=== PATIENT | female | born 1995 | race Caucasian/White ===

== ENCOUNTER 2024-07-03 05:05 | Inpatient (IN) | payer BC, SELFPAY ==
[2024-07-03] VITALS (100 sets, daily range): BP systolic 92–152; BP diastolic 39–95; PULSE 73–233; RESP 18; TEMP 36.6–37.2; O2SAT 97–100; BMI 34.4
--- NOTE | 2024-07-03 05:33 | LDADM ---
This patient, Brook Mcginnis, was admitted to Labor/Delivery/Recovery 103 on 07/03/24 at 05:05. Plans for labor, pain management and were discussed with patient. Patient/family oriented to hospital policies and general routines including ID bracelet, bed and alarms, visiting hours, pain management, procedures, bathroom and other care routines, personal items, smoking policy, room service/diet and guest tray routines, security routines, and visiting hours. Patient/Family are encouraged to report perceived risks to care and to ask questions if they do not understand what they are told or what they should do. See OBIX for further documentation.
--- NOTE | 2024-07-03 05:44 | P.HP_ITS ---
H&P: HPI History of Present Illness Date/Time: 07/03/24 05:44 Chief Complaint: induction labor Labor at term Narrative: 29-year-old 2 para 0 whose last menstrual period was 09/17/2023, EDC is 06/29/2024, confirmed by 7 week ultrasound presents at 40 and half weeks gestation for induction of labor. She is positive for group B strep. Her has been otherwise uncomplicated [facility] Family History Family History Mother Hypertension Grandparent Hypertension Breast cancer Grandparent Breast cancer Father Diabetes mellitus Grandparent Diabetes mellitus Social History Social History Smoking status: Never smoker Substance use: never Do You Feel Safe in your Home?: Yes Lack of Transportation: YES Lack of Food: Never True Current Housing: I Have Housing Concerned About Future Housing: No Difficulty Paying Gas/Electric Bills: No Difficulty Paying for Meds: No Currently Unemployed: No Education: Bachelor's Degree Difficulty w/ Childcare or Family Care: No Spiritual care concerns: No Meds Home Medications and Allergies Home Medications Medication Instructions Recorded Confirmed Type prenat.vits,zoe,yrw-eivf-jlwea 1 tablet 06/03/24 History Allergies Allergy/AdvReac Type Severity Reaction Status Date / Time No Known Allergies Allergy Verified 06/03/24 15:31 Vital Signs Vital Signs - 24 hr 07/03/24 05:23 07/03/24 05:30 Pulse Rate 101 H Blood Pressure 138/89 Oxygen Delivery Room Air Exam Const: General: cooperative, healthy appearing and comfortable Nutritional Appearance: average body habitus Orientation/consciousness: oriented to person, oriented to place and oriented to time Resp: Effort & Inspection: normal respiratory effort Cardio: Rate: regular rate Rhythm: regular rhythm Heart sounds: S1 normal heart sound present and S2 normal heart sound present GI: Inspection: normal to inspection ( gravid soft uterus) : External Female Exam: normal external appearance Speculum Exam - Va sanjuanita: normal appearance of the vagina Speculum Exam - Cervix: normal appearance of the cervix ( cervix 4/75/2. AROM clear. FHT is reassuring) Assessment and Plan Assessment and plan (1) Term : Code(s): Z34.90 - Encounter for supervision of normal , unspecified, unspecified trimester Status: Acute (2) Positive testing for group B Streptococcus: Code(s): B95.1 - Streptococcus, group B, as the cause of diseases classified elsewhere Status: Acute Assessment and Plan: medical induction labor. Group B strep prophylaxis. Spontaneous vaginal delivery is expected. She is an epidural candidate
[2024-07-03] MEDS: AMPICILLIN 2 GM/NS 100 ML 2 GM/100 ML BAG IVPB (05:45)
[2024-07-03] MEDS: OXYTOCIN 30 UNITS/NS 500 ML 30 UNITS/500 ML BAG IV CONT ×2 (05:45→14:35)
[2024-07-03] MEDS: LACTATED RINGERS 1,000 ML 125 ML IV CONT ×2 (05:45→07:51)
[2024-07-03 05:52] LABS: Basophils Percent Auto 0.5 % (0.2-1.2); Eosinophils Absolute Auto 0.1 K/mm3 (0-0.3); Eosinophils Percent Auto 1.6 % (0-4.4); Hematocrit 36.6 % (37.0-47.0); Hemoglobin 12.3 g/dL (12.0-15.0); Immature Granulocyte Absolute 0.07 K/mm3 (0.00-0.031); Immature Granulocyte Percent A 0.8 % (0-0.5); Lymphocytes Absolute Auto 1.67 K/mm3 (0.9-3.2); Lymphocytes Percent Auto 18.8 % (18.3-44.2); Mean Corpuscular HGB Conc 33.6 g/dl (32-36); Mean Corpuscular Hemoglobin 31.5 pg (26-34); Mean Corpuscular Volume 93.6 fl (80-100); Mean Platelet Volume 11.7 fl (7.4-10.4); Monocytes Absolute Auto 0.6 K/mm3 (0.1-0.6); Neutrophils Absolute Auto 6.3 K/mm3 (1.3-6.7); Neutrophils Percent Auto 71.3 % (45.5-73.1); Platelet Count Result 155 k/mm3 (150-375); Red Blood Count 3.91 M/mm3 (4.2-5.4); White Blood Count 8.9 K/mm3 (4.5-10.0)
--- NOTE | 2024-07-03 06:23 | WPDANESEPP ---
Anes - Eval Pre Procedure Procedure: labor epidural Date/Time: 07/03/24 06:23 Surgeon: baljinder Preop Diagnosis: pain during labor Pre Op Diagnosis: IOL Patient Data Age: 29 Gender: F Height: Weight: Last Vital Signs Pulse 81 07/03/24 06:01 BP 128/71 07/03/24 06:01 O2 Del Method Room Air 07/03/24 05:30 Allergies Allergy/AdvReac Type Severity Reaction Status Date / Time No Known Allergies Allergy Verified 06/03/24 15:31 Home Medications Medication Instructions Recorded Confirmed Type prenat.vits,zoe,emh-bkxz-utgpe 1 tablet 06/03/24 History Laboratory Tests 07/03/24 07/03/24 05:33 05:34 WBC 8.9 K/mm3 (4.5-10.0) RBC 3.91 L M/mm3 (4.2-5.4) Hgb 12.3 g/dL (12.0-15.0) Hct 36.6 L % (37.0-47.0) MCV 93.6 fl (80-100) MCH 31.5 pg (26-34) MCHC 33.6 g/dl (32-36) RDW 13.0 % (11.5-14.5) Plt Count 155 k/mm3 (150-375) MPV 11.7 H fl (7.4-10.4) Immature Gran % (Auto) 0.8 H % (0-0.5) Neut % (Auto) 71.3 % (45.5-73.1) Lymph % (Auto) 18.8 % (18.3-44.2) [place] % (Auto) 7.0 % (2.6-8.5) Eos % (Auto) 1.6 % (0-4.4) Baso % (Auto) 0.5 % (0.2-1.2) Lymph # (Auto) 1.67 K/mm3 (0.9-3.2) [place] # (Auto) 0.6 K/mm3 (0.1-0.6) Eos # (Auto) 0.1 K/mm3 (0-0.3) Baso # (Auto) 0.0 K/mm3 (0.0-0.1) Abs Immat Gran (auto) 0.07 H K/mm3 (0.00-0.031) Absolute Neuts (auto) 6.3 K/mm3 (1.3-6.7) Absolute Nucleated RBC 0.000 K/mm3 (0.0-0.012) Nucleated RBC % 0.0 % (0.0-0.2) RPR Pending HIV 1&2 Ab/P24 Ag 4thGn Pending Blood Type AB Positive Antibody Screen Pending Patient hx anesthesia problems: none Family hx anesthesia problems: none Results Review: All pre-operative results and documents have been reviewed as part of the pre-operative evaluation. [facility] Family History Family History Mother Hypertension Grandparent Hypertension Breast cancer Grandparent Breast cancer Father Diabetes mellitus Grandparent Diabetes mellitus Social History Social History Smoking status: Never smoker Substance use: never Do You Feel Safe in your Home?: Yes Lack of Transportation: YES Lack of Food: Never True Current Housing: I Have Housing Concerned About Future Housing: No Difficulty Paying Gas/Electric Bills: No Difficulty Paying for Meds: No Currently Unemployed: No Education: Bachelor's Degree Difficulty w/ Childcare or Family Care: No Spiritual care concerns: No Exam Day of Procedure 07/03/24 06:23
[2024-07-03 06:36] LABS: HIV 1/2 Ab P24 Ag Result Negative (Negative)
[2024-07-03 07:45] LABS: Rapid Plasma Reagin Non-Reactive (NonReactive)
[2024-07-03] MEDS: fentaNYL CITRATE INJ (*CRX) 100 MCG/2 ML VIAL 50 MCG IV PUSH ×2 (07:50→09:00)
[2024-07-03] MEDS: AMPICILLIN 1 GM/NS 50 ML 1 GM/50 ML BAG IVPB (10:12)
--- NOTE | 2024-07-03 12:03 | PM.OBPNLAB ---
Pain Control Date/time seen: 07/03/24 12:03 Pain control: tolerating well and epidural Pelvic Exam Dilation (cm): 10 Effacement (%): 100 station: 0 Amniotic membrane status: Leaking
--- NOTE | 2024-07-03 14:17 | P.PCNOB_ITS ---
OB - Vaginal Delivery Note Procedure Delivery date: 07/03/24 Induction method: AROM Delivery augmentation: Pitocin Delivery monitor: External FHT and External Uterine Route of delivery: Episiotomy description: None Laceration Description: Perineal - 1st Degree Delivery repair: vicryl Specimen: No Quantitative Blood Loss (ml): 161 Anesthesia type: Epidural Disposition: Floor Complications: No immediate complications Narrative: She was admitted for induction of labor with group B strep at 40 and half weeks gestation artificial rupture membranes performed she received 2 doses of ampicillin. When she was complete she pushed delivered the head spontaneously in the SERENE position. Nuchal cord checked noted be loose x1 read room occiput anterior posterior shoulder delivered spontaneously. Cord to the placed in warmer given Apgars of 8 at 8 [id number]. Cord blood was drawn placenta delivered intact spontaneously. 20units Pitocin placed IV to help firm after speculum sidewalls 1st be sulcal tear was noted and a [id number] suture was placed with 0 blood loss was 161cc all sponge, needle, instrument counts were correct. No complications [place] Baby Date of : 07/03/24 Time of : 14:03 Gestational Age by Date: 40 gender: Male Weight (pounds): 9 Weight (ounces): 10 presentation: vertex position: Right Occiput Anterior Placenta delivery description: Spontaneous Cord Vessel Description: 3 Vessels, Nuchal Cord, Loose and Reduced score one minute: 8 score five minutes: 8 Narrative: ampicillin x2 for group B strep
--- NOTE | 2024-07-03 14:20 | PM.DS ---
DS: Admitting Diagnosis Discharge Date 07/05/2024 Admitting Diagnosis term /positive group B strep DS: Discharge Diagnosis Discharge Diagnosis (1) Positive testing for group B Streptococcus: Code(s): B95.1 - Streptococcus, group B, as the cause of diseases classified elsewhere Status: Acute (2) Term : Code(s): Z34.90 - Encounter for supervision of normal , unspecified, unspecified trimester Status: Acute DS: Summary Hospital Course Reason for hospitalization: patient was admitted for induction labor at 40 and half weeks gestation on 07/03/2024 and underwent spontaneous vaginal delivery with 2 doses of ampicillin prophylactically for group B strep Hospital Course: patient's hospital course will recall. She remained afebrile she was up, voiding without difficulty, eating regular diet, ambulating, and generally 5 complaints. Time Spent with Patient Time attestation: Total time spent providing and/or coordinating discharge services: Exam Const: General: cooperative, healthy appearing and comfortable Nutritional Appearance: average body habitus Orientation/consciousness: oriented to person, oriented to place and oriented to time HENMT: Head: normal to inspection Resp: Effort & Inspection: normal respiratory effort Cardio: Rate: regular rate Rhythm: regular rhythm Heart sounds: S1 normal heart sound present and S2 normal heart sound present GI: Inspection: normal to inspection DS: Data Data Completed and Pending Labs on day of discharge: Labs from last 24 hours 07/03/24 07/03/24 05:34 05:33 WBC 8.9 RBC 3.91 L Hgb 12.3 Hct 36.6 L MCV 93.6 MCH 31.5 MCHC 33.6 RDW 13.0 Plt Count 155 MPV 11.7 H Immature Gran % (Auto) 0.8 H Neut % (Auto) 71.3 Lymph % (Auto) 18.8 [place] % (Auto) 7.0 Eos % (Auto) 1.6 Baso % (Auto) 0.5 Lymph # (Auto) 1.67 [place] # (Auto) 0.6 Eos # (Auto) 0.1 Baso # (Auto) 0.0 Abs Immat Gran (auto) 0.07 H Absolute Neuts (auto) 6.3 Absolute Nucleated RBC 0.000 Nucleated RBC % 0.0 RPR Non-reactive HIV 1&2 Ab/P24 Ag 4thGn Negative Blood Type AB Positive Antibody Screen Negative Discharge Plan Discharge Attending physician on discharge: Petar Quintanilla Discharging Clinician: Petar Quintanilla Patient Disposition: Home, Self-Care Activity: may shower and pelvic rest Diet: heart healthy Wound Care Instructions: follow printed instructions Patient Instructions: Antibiotic Form Stand Alone Forms: General Discharge Information Follow-up/Referrals: Petar Quintanilla MD [Physician] - Discharge Medications: Continued #2 Tablet 1 tablet PO DAILY Date of admission: 07/03/24 05:05 Primary Care Provider: UNKNOWN,DOCTOR Admitting Provider: Petar Quintanilla Attending physician on admission: Petar Quintanilla Condition: Stable
[2024-07-03] MEDS: METHYLERGONOVINE MALEATE 0.2 MG/ML VIAL IM (16:10)
[2024-07-03] MEDS: BENZOCAINE 20% AER SPR (*SP) 56 GM CAN 1 SPRAY TOPICAL (16:40)
[2024-07-03] MEDS: IBUPROFEN 600 MG TABLET PO ×2 (16:40→23:30)
[2024-07-03] MEDS: WITCH HAZEL 40 PADS 1 PAD TOPICAL (16:40)
--- NOTE | 2024-07-03 18:41 | OBPPTRN ---
Patient transferred to post room #287 via w/c. Support person present. Oriented to unit, room, information board, rooming in, admission packet and security measures. Patient verbalizes understanding.
[2024-07-03] MEDS: ACETAMINOPHEN 325 MG TABLET 650 MG PO (21:00)
[2024-07-04] MEDS: ACETAMINOPHEN 325 MG TABLET 650 MG PO ×3 (04:00→23:58)
[2024-07-04 05:57] LABS: Hematocrit 30.4 % (37.0-47.0); Hemoglobin 10.2 g/dL (12.0-15.0)
[2024-07-04] MEDS: MULTIVIT/MIN/PREN/FOL AC/IRON TABLET 1 TAB PO (07:19)
[2024-07-04] MEDS: IBUPROFEN 600 MG TABLET PO ×3 (07:19→20:34)
--- NOTE | 2024-07-04 08:25 | PC.NURSE ---
Introductions made, name written board. RN consulted with patient to assess needs related to . Discussed with mother her successes, concerns and any questions she has. We reviewed working with the infant, supporting breast, protecting her nipples with an optimal deep latch, good positioning, and good hand washing. Encouraged understanding the benefits of skin to skin, responding to feeding cues, frequencies of feeding 8-12 times in 24 hours (approximately 2-3 hours), duration of feedings, milk production, intake/output feeding sheet and signs of adequate intake encouraging swallowing at the breast. Reviewed positioning and alignment, supporting breast, off-centered (asymmetrical latch) and leading with the chin with big, open, wide gape. latched optimally to the left breast in football position. Education given to the mother of how to visualize the suckling (with good rocking jaw motion) swallows (dropping of the lower jaw) and how to listen for drinking at the breast (the ka sound). The infant was able to maintain latch without discomfort to mother. Nipple care reviewed with optimal latch, good positioning and using clean hands when touching her breast. Resources used to facilitate learning were used from the visual handouts and the mom and baby guide. Mother voiced understanding of the education shared, to call for assistance if the does not latch or if there is discomfort with . Reported to the Primary RN.
[2024-07-04 08:30] VITALS: BP 112/68; PULSE 72; RESP 16; TEMP 36.4; O2SAT 100
[2024-07-04] MEDS: DOCUSATE SODIUM 100 MG CAPSULE PO ×2 (09:38→13:48)
[2024-07-04 12:20] VITALS: BP 108/68; PULSE 84; RESP 16; TEMP 36.6; O2SAT 98
--- NOTE | 2024-07-04 14:00 | WPDANLDPN2 ---
Anes-Prog Note L&D Date/Time: 07/04/24 14:00 Comfortable throughout: labor and delivery Neuraxial method: epidural Epidural/Spinal procedure site: clean & non-tender Neuro status: Neuro function grossly intact. Cardiovascular status: normal Respiratory status: normal Airway patency: baseline Mental status: baseline Post-Op hydration status: normal Vital Signs: Last Vital Signs Temp 36.6 C 07/04/24 12:20 Pulse 84 07/04/24 12:20 Resp 16 07/04/24 12:20 BP 108/68 07/04/24 12:20 Pulse Ox 98 07/04/24 12:20 O2 Del Method Room Air 07/03/24 19:00 Pain score (VAS): 3/10 I/O: Intake & Output 07/03/24 07/04/24 07/04/24 23:59 07:59 15:59 Output Total 262 Balance -262 Post-procedural complaints: none Patient feedback: Patient satisfied with anesthetic care.
--- NOTE | 2024-07-04 17:00 | PC.NURSE ---
1600. Patient called out for help with . Mom reported she wanted to check her latch bc she was starting to feel soreness. Baby was latched to the left breast in cross cradle position. His bottom lip was curled under and not in the proper flanged out position. The angle of his mouth was less than 140 degrees and not the ideal 140 or more. Reviewed positioning with mom and to aim to latch baby with his lower lip first in an asymetrical latch. Reviewed how baby's lips need to be flanged out to create the perfect seal around the breast. Reviewed how to properly delatch baby so she doesn't create sores on her nipples. Baby was able to latch in an ideal position with no pain to the mom on the left breast in cross cradle position. Mom verbalized understanding of teaching and how to help baby maintain a deeper latch. Mom understands soreness or nipple pain is a sign of a bad latch. Reviewed how to call out for help if she needs for her next feeding session and also reviewed how to get support when she goes home thru an outpatient appt or calling the number in her mom and baby guide.
[2024-07-04 21:15] VITALS: BP 136/76; PULSE 95; RESP 18; TEMP 36.7; O2SAT 100
[2024-07-05] MEDS: IBUPROFEN 600 MG TABLET PO (04:55)
--- NOTE | 2024-07-05 06:50 | PM.OBPNVD ---
OB - PN: Subj Subjective Date/time seen: 07/05/24 06:50 Patient comments: no complaints and pain well controlled baby status: doing well and nursing well OB - PN: Obj Data Labs 07/04/24 04:04 OB - PN A/P Plan day: 2 Plan: routine care, discharge home and follow up 6 weeks Time Spent With Patient Time: Total time spent is greater than 50% in coordination of care (as documented) at patient's floor/unit and/or counseling patient: Time with patient: less than 15 minutes Exam Const: General: cooperative, healthy appearing and comfortable Nutritional Appearance: average body habitus Orientation/consciousness: oriented to person, oriented to place and oriented to time Resp: Effort & Inspection: normal respiratory effort Cardio: Rate: regular rate Rhythm: regular rhythm Heart sounds: S1 normal heart sound present and S2 normal heart sound present GI: Inspection: normal to inspection (fundus firm)
[2024-07-05 07:40] VITALS: BP 126/70; PULSE 73; RESP 18; TEMP 36.4; O2SAT 100
--- NOTE | 2024-07-05 07:40 | PC.NURSE ---
Mother verbalizes she is able to independently latch with appropriate positioning and alignment. She denies any nipple discomfort and is responsively . Observed her feeding baby on the right breast in cradle hold. Mother is checking each latch to be sure baby isn't rolling his bottom lip in. is currently at 8% weight loss, so the night RN initiated supplementation. Mother does have a small blister on the left nipple, but she was able to feed with the left breast in the night without significant discomfort. Advised using lanolin with clean hands and rotating positions to prevent rubbing in the same area. Mother is encouraged to call for assistance if her doesn?t latch, pain with latching, questions or concerns. Mother voiced understanding of information shared. Reported to the Primary RN.
[2024-07-05] MEDS: DOCUSATE SODIUM 100 MG CAPSULE PO (09:19)
[2024-07-05] MEDS: MULTIVIT/MIN/PREN/FOL AC/IRON TABLET 1 TAB PO (09:19)
[2024-07-05] MEDS: INFLUENZA TRIVALENT VACCINE 45 MCG/0.5 ML SYRINGE IM (10:32)
--- NOTE | 2024-07-05 10:35 | PC.NURSE ---
Consulted with mother concerning needs and she shared her ability to independently latch infant optimally without pain. Mother is feeding appropriately for growth of infant and understands stimulating to eat if needed. Infant has had appropriate feedings in the last 24 hours meets the outcomes for weight (8%), output, blood sugar and jaundice at this time. Reinforced understanding of milk production, transition of milk, signs of adequate intake, transition of stool, prevention/relief of engorgement, plugged ducts, mastitis, responsive watching for feeding cues, the different methods of stimulating infant to breastfeed 1-3 hours after the start of the last feeding, handouts ( Issues, Sore Nipples, and Baby Getting Enough?) provided, and when to call a provider using the resource of the feeding sheet along with the mom and baby guide. Mother voiced understanding of the information shared, is confident to continue effectively her at home, when to call for assistance, denies any additional assistance or education at this time. Reported to the Primary RN.
--- NOTE | 2024-07-05 11:30 | PM.OBPNVD ---
OB - PN: Subj Subjective Date/time seen: 07/05/24 11:30 Interval history: there was small amount ofbleeding from her incision earlier but is no further OB - PN: Obj Data Labs 07/04/24 04:04 OB - PN A/P Plan day: 1 Plan: routine care Time Spent With Patient Time: Total time spent is greater than 50% in coordination of care (as documented) at patient's floor/unit and/or counseling patient: Time with patient: less than 15 minutes Exam Const: General: cooperative, healthy appearing and comfortable Nutritional Appearance: average body habitus Orientation/consciousness: oriented to person, oriented to place and oriented to time Resp: Effort & Inspection: normal respiratory effort Cardio: Rate: regular rate Rhythm: regular rhythm Heart sounds: S1 normal heart sound present and S2 normal heart sound present GI: Inspection: normal to inspection and incision ( appears clean dry and intact)
[2024-07-06 11:55] VITALS: BP 135/85; PULSE 89; RESP 18; TEMP 36.9; O2SAT 99
== END 2024-07-05 12:15 | disposition home or self-care (01) | DRG 807 ==
LOC: ANHLDR 14:22 → ANHOB2 18:43
PROVIDERS: Admitting Provider Obstetrics & Gynecology; Visit Provider Obstetrics & Gynecology
DX: O99.824 Streptococcus B carrier state complicating childbirth (principal); Z37.0 Single live birth; Z3A.40 40 weeks gestation of pregnancy; O70.0 First degree perineal laceration during delivery; O69.81X0 Labor and delivery complicated by cord around neck, without compression, not applicable or unspecified; Z23 Encounter for immunization
CPT/HCPCS: 36415; 85014; 85018; 85025; 86592; 86703; 86850; 86900; 86901; 90471; 90656; A9270; G0008; G0432; J0290; J2210; J2590; J2795; J3010; J7120